=== PATIENT | male | born 1995 | race Caucasian/White ===

== ENCOUNTER 2017-10-18 11:15 | Inpatient (IN) | payer OTHER ==
[~2017-10-18] VITALS: Ht 180.3 cm; Wt 105.5 kg
[~2017-10-18 11:15] MED LIST: DEXAMETHASONE 4 MG/ML, 1ML ONE; GLYCOPYRROLATE 0.2MG/1ML, 5ML ONE; NEOSTIGMINE 1 MG/ML, 10ML ONE; PROPOFOL 10 MG/ML, 20ML ONE; ROCURONIUM 10 MG/ML,10ML ONE; SUCCINYLCHOLINE 20 MG/ML, 10ML ONE
[2017-10-18] MEDS ORDERED: SODIUM CHLORIDE 0.9% 1,000ML IVBOLUS ONE (13:00)
[2017-10-18 13:04] LABS: MICROSCOPIC NOT IND
[2017-10-18 13:06] LABS: CULTURE INDICATED? NO
[2017-10-18] MEDS ORDERED: PIPERACILLIN/TAZO/PMX 3.375GM 50 ML IV SCH (13:08)
[2017-10-18] MEDS ORDERED: PIPERACILLIN/TAZO/PMX 3.375GM 50 ML ONE ×2 (13:13→13:14)
[2017-10-18] MEDS ORDERED: CLINDAMYCIN PMX 900MG/50ML 50 ML IV ONE (14:30)
[2017-10-18] MEDS ORDERED: ZOLPIDEM 5MG TABLET PO PRN (15:00)
[2017-10-18] MEDS ORDERED: hydrALAzine 20 MG/ML, 1ML IVPush PRN (15:00)
[2017-10-18] MEDS: NICOTINE 7 MG/24 HR PATCH.TD24 TD SCH (15:00)
[2017-10-18] MEDS ORDERED: DOCUSATE 100 MG CAPSULE PO PRN (15:00)
[2017-10-18] MEDS ORDERED: ACETAMINOPHEN 325 MG TABLET PO PRN ×2 (15:00→19:00)
[2017-10-18] MEDS ORDERED: GUAIFENESIN/DM 200-20MG, 10ML UDC PO PRN (15:00)
[2017-10-18] MEDS ORDERED: ONDANSETRON 2MG/ML, 2ML IVPush PRN ×2 (15:00→19:00)
[2017-10-18] MEDS: D5%-0.45% NACL 1,000 ML IV SCH (15:04)
[2017-10-18] MEDS: morphine SULFATE 10 MG/ML, 1ML IVPush PRN ×3 (15:06→21:05)
[2017-10-18] MEDS ORDERED: MORPHINE SULFATE 4 MG/ML, 1ML ONE (15:22)
[2017-10-18 16:51] VITALS: BP 119/72
[2017-10-18] MEDS ORDERED: EPINEPHRINE 1 MG/ML, 1ML ONE (18:21)
[2017-10-18] MEDS ORDERED: BUPIVACAINE/PF 0.5% ONE (18:21)
[2017-10-18] MEDS ORDERED: LIDOCAINE/PF 1%, 30ML ONE (18:21)
[2017-10-18] MEDS ORDERED: MIDAZOLAM 1 MG/ML, 2ML ONE (18:26)
[2017-10-18] MEDS ORDERED: FENTANYL PF 100 MCG/2ML ONE ×2 (18:26→19:29)
[2017-10-18] MEDS ORDERED: METOCLOPRAMIDE 5 MG/ML, 2ML IV PRN (19:00)
[2017-10-18] MEDS ORDERED: OXYcodone 5 MG/5 ML ORAL.SOL UDC PO PRN (19:00)
[2017-10-18] MEDS ORDERED: hydrALAzine 20 MG/ML, 1ML IV PRN (19:00)
[2017-10-18] MEDS ORDERED: HYDROmorphone 1 MG/ML, 1ML IV PRN (19:00)
[2017-10-18] MEDS ORDERED: LABETALOL 5MG/ML, 20ML IV PRN (19:00)
[2017-10-18] MEDS ORDERED: ACETAMINOPHEN 650 MG/20.3 ML UDC ONE (19:28)
[2017-10-18] MEDS ORDERED: OXYcodone 5 MG/5 ML ORAL.SOL UDC ONE (19:29)
[2017-10-18] MEDS: FENTANYL PF 100 MCG/2ML IV PRN ×2 (19:30→19:40)
[2017-10-18 20:20] VITALS: BP 116/59
[2017-10-18] MEDS: PIPERACILLIN/TAZO/PMX 3.375GM 50 ML IV SCH (20:55)
[2017-10-18 23:25] VITALS: BP 104/52
[2017-10-19 03:07] VITALS: BP 106/60
[2017-10-19] MEDS: PIPERACILLIN/TAZO/PMX 3.375GM 50 ML IV SCH ×4 (03:29→21:57)
[2017-10-19] MEDS: HYDROcodone/APAP 5/325 TABLET PO PRN ×3 (03:32→21:58)
[2017-10-19 05:35] LABS: BASOPHILS # (AUTO) 0.02 x10^3/uL (0-0.1); BASOPHILS % (AUTO) 0 % (0-1); EOSINOPHILS # (AUTO) 0.18 x10^3/uL (0-0.4); EOSINOPHILS % (AUTO) 3 % (1-7); LYMPHOCYTES # (AUTO) 1.69 x10^3/uL (1-3.4); LYMPHOCYTES % (AUTO) 24 % (22-44); MD NO; MEAN CORPUSCULAR HEMOGLOBIN 28.9 pg (27.5-34.5); MEAN CORPUSCULAR VOLUME 85.1 fL (81-97); MEAN PLATELET VOLUME 10.9 fL (7.4-10.4); MONOCYTES # (AUTO) 0.83 x10^3/uL (0.2-0.8); MONOCYTES % (AUTO) 12 % (2-9); NEUTROPHILS # (AUTO) 4.29 x10^3/uL (1.8-6.8); NEUTROPHILS % (AUTO) 61 % (42-75); PLATELET COUNT 204 x10^3/uL (130-400); RED BLOOD COUNT 4.33 x10^6/uL (4.38-5.82); RED CELL DISTRIBUTION WIDTH 13.5 % (9.4-14.8)
[2017-10-19 05:41] LABS: CHLORIDE 105 mmol/L (98-107)
[2017-10-19 05:42] LABS: ANION GAP 6 mmol/L (5-15); CALCIUM 8.9 mg/dL (8.5-10.1); CREATININE 1.07 mg/dL (0.7-1.3)
[2017-10-19] MEDS: D5%-0.45% NACL 1,000 ML IV SCH ×2 (06:45→17:46)
[2017-10-19 08:30] VITALS: BP 101/65
[2017-10-19 14:30] VITALS: BP 107/61
[2017-10-19] MEDS: NICOTINE 7 MG/24 HR PATCH.TD24 TD SCH (15:19)
[2017-10-19 18:48] VITALS: BP 118/73
[2017-10-20] MEDS: D5%-0.45% NACL 1,000 ML IV SCH ×3 (02:12→18:13)
[2017-10-20] MEDS: PIPERACILLIN/TAZO/PMX 3.375GM 50 ML IV SCH ×4 (03:31→21:02)
[2017-10-20 03:35] VITALS: BP 109/52
[2017-10-20 05:27] LABS: BASOPHILS # (AUTO) 0.03 x10^3/uL (0-0.1); BASOPHILS % (AUTO) 1 % (0-1); EOSINOPHILS # (AUTO) 0.25 x10^3/uL (0-0.4); EOSINOPHILS % (AUTO) 5 % (1-7); LYMPHOCYTES # (AUTO) 2.18 x10^3/uL (1-3.4); LYMPHOCYTES % (AUTO) 42 % (22-44); MD NO; MEAN CORPUSCULAR HEMOGLOBIN 28.7 pg (27.5-34.5); MEAN CORPUSCULAR HGB CONC 33.7 g/dL (33.2-36.2); MEAN PLATELET VOLUME 11.1 fL (7.4-10.4); MONOCYTES % (AUTO) 12 % (2-9); NEUTROPHILS # (AUTO) 2.12 x10^3/uL (1.8-6.8); NEUTROPHILS % (AUTO) 41 % (42-75); PLATELET COUNT 188 x10^3/uL (130-400); RED BLOOD COUNT 4.31 x10^6/uL (4.38-5.82); RED CELL DISTRIBUTION WIDTH 13.2 % (9.4-14.8)
[2017-10-20 05:34] LABS: ANION GAP 5 mmol/L (5-15); CALCIUM 8.7 mg/dL (8.5-10.1); CHLORIDE 108 mmol/L (98-107)
[2017-10-20 05:36] LABS: CREATININE 0.96 mg/dL (0.7-1.3)
[2017-10-20 08:38] VITALS: BP 106/69
[2017-10-20] MEDS ORDERED: MORPHINE SULFATE 4 MG/ML, 1ML IV PRN (10:30)
[2017-10-20 15:09] VITALS: BP 103/67
[2017-10-20] MEDS: NICOTINE 7 MG/24 HR PATCH.TD24 TD SCH (15:09)
[2017-10-20 19:37] VITALS: BP 116/72
[2017-10-20] MEDS: HYDROcodone/APAP 5/325 TABLET PO PRN (22:46)
[2017-10-21 02:05] VITALS: BP 120/60
[2017-10-21] MEDS: D5%-0.45% NACL 1,000 ML IV SCH ×2 (02:11→11:34)
[2017-10-21] MEDS: PIPERACILLIN/TAZO/PMX 3.375GM 50 ML IV SCH ×2 (02:11→08:31)
[2017-10-21 08:29] VITALS: BP 108/66
[2017-10-21] MEDS: NICOTINE 7 MG/24 HR PATCH.TD24 TD SCH (15:19)
[2017-10-21 16:51] VITALS: BP 149/57
[2017-10-21 19:29] VITALS: BP 137/76
[2017-10-21] MEDS: CIPROFLOXACIN 500 MG TABLET PO SCH (20:04)
[2017-10-22 03:02] VITALS: BP 110/68
[2017-10-22 05:15] LABS: BASOPHILS # (AUTO) 0.02 x10^3/uL (0-0.1); BASOPHILS % (AUTO) 0 % (0-1); EOSINOPHILS % (AUTO) 4 % (1-7); LYMPHOCYTES # (AUTO) 2.25 x10^3/uL (1-3.4); LYMPHOCYTES % (AUTO) 38 % (22-44); MD NO; MEAN CORPUSCULAR HEMOGLOBIN 28.7 pg (27.5-34.5); MEAN CORPUSCULAR HGB CONC 33.6 g/dL (33.2-36.2); MEAN CORPUSCULAR VOLUME 85.6 fL (81-97); MEAN PLATELET VOLUME 10.9 fL (7.4-10.4); MONOCYTES # (AUTO) 0.45 x10^3/uL (0.2-0.8); MONOCYTES % (AUTO) 8 % (2-9); NEUTROPHILS # (AUTO) 2.95 x10^3/uL (1.8-6.8); NEUTROPHILS % (AUTO) 50 % (42-75); PLATELET COUNT 228 x10^3/uL (130-400); RED BLOOD COUNT 4.73 x10^6/uL (4.38-5.82); RED CELL DISTRIBUTION WIDTH 12.9 % (9.4-14.8)
[2017-10-22 05:19] LABS: ANION GAP 5 mmol/L (5-15); CALCIUM 9.4 mg/dL (8.5-10.1); CHLORIDE 111 mmol/L (98-107); CREATININE 0.99 mg/dL (0.7-1.3)
[2017-10-22 06:55] VITALS: BP 110/62
[2017-10-22] MEDS: CIPROFLOXACIN 500 MG TABLET PO SCH (09:02)
[2017-10-22] MEDS: morphine SULFATE 10 MG/ML, 1ML IVPush PRN (12:25)
[2017-10-22] MEDS ORDERED: CIPR500T87 PO (12:52)
[2017-10-22] MEDS ORDERED: HYDROmorphone 2 MG/ML, 1ML ONE (13:53)
[2017-10-22] MEDS ORDERED: HYDROmorphone 1 MG/ML, 1ML IV ONE (14:00)
[2017-10-22 14:04] VITALS: BP 140/70
== END 2017-10-22 15:16 | disposition home or self-care (01) | DRG 718 ==
LOC: ED 12:13 → EDIP 13:11 → 4NOR 14:15 → DCLOUNGE 10-22 15:09
PROVIDERS: ADMIT Urology; ATTEND Urology
PROC: 0V950ZZ Drainage of Scrotum, Open Approach (ICD-10-PCS; 2017-10-18)
PROC: 0JBB0ZZ Excision of Perineum Subcutaneous Tissue and Fascia, Open Approach (ICD-10-PCS; principal; 2017-10-18 18:00)
DX: N49.2 Inflammatory disorders of scrotum (principal); B96.1 Klebsiella pneumoniae [K. pneumoniae] as the cause of diseases classified elsewhere; F17.210 Nicotine dependence, cigarettes, uncomplicated
CPT/HCPCS: 36415; 76870; 80048; 81003; 85025; 87040; 87070; 87075; 87077; 87186; 87205; 96360; 96361; J0171; J1100; J2250; J2543; J2704; J2710; J3010; J3490; J0330; J2270; J7030